=== PATIENT | female | born 1975 | race Caucasian/White ===

== ENCOUNTER 2021-10-26 09:54 | Emergency (ER) | payer OTHER ==
[~2021-10-26] VITALS: Ht 172.7 cm; Wt 138.8 kg
[2021-10-26 10:54] LABS: HEMOGLOBIN 14.2 gm/dl (12.3-15.3); RED BLOOD COUNT 4.82 M/UL (4.00-5.10); WHITE BLOOD COUNT 9.5 K/UL (4.5-11.0)
[2021-10-26 11:18] LABS: BUN/CREATININE RATIO 16 (0-10)
== END 2021-10-27 15:10 ==
LOC: ER1 09:54
PROVIDERS: Emergency Medicine
DX: R56.9 Unspecified convulsions (principal); E10.9 Type 1 diabetes mellitus without complications; Z20.822 Contact with and (suspected) exposure to COVID-19; I10 Essential (primary) hypertension; F17.200 Nicotine dependence, unspecified, uncomplicated
CPT/HCPCS: 70450; 70496; 70498; 70553; 71045; 80053; 80307; 81001; 82550; 82553; 82962; 83874; 84484; 84703; 85025; 93005; 94640; 94760; 99285; A9577; U0002